=== PATIENT | male | born 1970 | race Caucasian/White ===

== ENCOUNTER 2017-02-12 20:38 | Emergency (ER) | payer SELFPAY ==
[2017-02-12 21:08] VITALS: BP 140/99
[2017-02-12] MEDS ORDERED: PROCHLORPERAZINE EDISYLATE INJ 10 MG/2 ML VIAL IV ONE (21:19)
[2017-02-12] MEDS ORDERED: DIPHENHYDRAMINE HCL 50 MG/ML VIAL IV ONE (21:19)
[2017-02-12] MEDS ORDERED: NORMAL SALINE 1000 ML 1,000 ML IV ONE (21:20)
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
--- NOTE | 2017-02-12 21:48 | RADIOLOGY REPORT (SQ) ---
EXAM DESCRIPTION: FOOT LEFT COMPLETE COMPLETED DATE/TIME: 02/12/2017 9:37 pm REASON FOR STUDY: BRUISING COMPARISON: None. NUMBER OF VIEWS: Three views. TECHNIQUE: AP, lateral and oblique radiographic images acquired of the left foot. LIMITATIONS: None. FINDINGS: MINERALIZATION: Normal. BONES: Transverse fracture, left pinky toe proximal phalanx common nondisplaced nonangulated. Remain abi of the bones of the foot are unremarkable. JOINTS: No effusions. SOFT TISSUES: Mild dorsal forefoot soft tissue swelling. No foreign body. OTHER: No other significant finding. IMPRESSION: Transverse acute fracture left pinky toe proximal phalanx, nonangulated nondisplaced TECHNICAL DOCUMENTATION: JOB ID: [id number] [employer]- All Rights Reserved
[2017-02-12 23:15] LABS: ANION GAP 12 (5-19); BLOOD UREA NITROGEN 30 mg/dL (7-20); CALCIUM 9.3 mg/dL (8.4-10.2); CARBON DIOXIDE 24 mmol/L (22-30); CHLORIDE 107 mmol/L (98-107); CREATINE KINASE 64 U/L (55-170); CREATININE RESULT 0.72 mg/dL (0.52-1.25); GLUCOSE 99 mg/dL (75-110); POTASSIUM 3.7 mmol/L (3.6-5.0); SODIUM 142.9 mmol/L (137-145)
== END 2017-02-12 23:52 | disposition home or self-care (01) ==
LOC: ER 20:38
DX: S92.502A Displaced unspecified fracture of left lesser toe(s), initial encounter for closed fracture (principal); W19.XXXA Unspecified fall, initial encounter; R51 Headache
CPT/HCPCS: 99284; 96361; 96374; 96375; 36415; 82550; 80048; 73630; J1200; J0780; J7030